=== PATIENT | male | born 1995 | race American Indian/Alaskan Native ===

== ENCOUNTER 2020-04-13 19:33 | Emergency (ER) | payer SELFPAY ==
[2020-04-13 20:00] VITALS: BP 159/84
--- NOTE | 2020-04-13 20:33 | Emergency Department Report ---
Chief Complaint: Urogenital-Male Stated Complaint: DISCHARGE/PAIN IN GROIN AREA - HPI History of Present Illness: 25-year-old -Italian male patient presents with complaints of penile discharge and tingling with urination x today. He denies any hematuria, testicular/penile pain/swelling, fever/chills/sweats, abdominal pain, swollen glands, or skin lesions. Patient reports that his recent sex partner states she had a contact with an individual who had chlamydia. Vitals are normal, patient is well-appearing, he is stable for outpatient evaluation and treatment for STI. Discussed in detail signs and symptoms that should prompt immediate return to the emergency department in detail with patient who verbalized understanding. Patient provided with clinic list and informed to follow-up within 24 to 48 hours. Patient also informed to refrain from any sexual activity until further instructed by a physician. - Exam Vital Signs: Vital Signs 04/13/20 19:58 Temperature 98.2 F Pulse Rate 67 Respiratory 17 Rate Blood Pressure 159/84 O2 Sat by Pulse 99 Oximetry MSE screening note: Focused history and physical exam performed. Due to findings the following was ordered: ED Disposition for MSE Clinical Impression: Penile discharge Disposition: Z-07 MED SCREENING EXAM-LEFT Is pt being admited?: No Condition: Stable Instructions: Urethritis, Adult Additional Instructions: Please follow-up with a clinic from the list provided within 24 to 48 hours. If you develop any fever/chills/sweats, throat pain, swollen/hot/painful joints, hematuria, skin lesions, or swelling/pain to the testicles or penis seek immediate emergency treatment ED Physical Exam - General Limitations: No Limitations General appearance: alert, in no apparent distress - Head Head exam: Present: atraumatic, normocephalic - Eye Eye exam: Present: normal appearance. Absent: scleral icterus - ENT ENT exam: Present: normal exam, normal orophraynx - Neck Neck exam: Present: normal inspection - Respiratory Respiratory exam: Absent: respiratory distress - Cardiovascular Cardiovascular Exam: Present: regular rate - GI/Abdominal GI/Abdominal exam: Present: soft. Absent: tenderness - exam: Present: other (deferred) - Extremities Exam Extremities exam: Present: full ROM. Absent: tenderness, joint swelling - Back Exam Back exam: Present: full ROM - Neurological Exam Neurological exam: Present: alert, oriented X3, normal gait - Psychiatric Psychiatric exam: Present: normal affect, normal mood - Skin Skin exam: Present: warm, dry, intact, normal color. Absent: rash, diaphoretic, erythema ED Review of Systems ROS: Stated complaint: DISCHARGE/PAIN IN GROIN AREA Other details as noted in HPI Constitutional: denies: chills, diaphoresis, fever, malaise, weakness ENT: denies: throat pain Respiratory: denies: cough, shortness of breath Cardiovascular: denies: chest pain Gastrointestinal: denies: abdominal pain, nausea, vomiting Genitourinary: discharge. denies: urgency, frequency, hematuria, testicular pain, testicular mass Musculoskeletal: denies: back pain Skin: denies: rash, lesions, change in color Neurological: denies: headache Hematological/Lymphatic: denies: swollen glands
== END 2020-04-13 20:34 | disposition left against medical advice (07) ==
LOC: ED 19:33
DX: R10.30 Lower abdominal pain, unspecified (principal); Z53.21 Procedure and treatment not carried out due to patient leaving prior to being seen by health care provider